=== PATIENT | female | born 1955 | race Caucasian/White ===

== ENCOUNTER → 2017-01-31 | Outpatient (CLI) | payer OTHER ==
--- NOTE | 2017-02-01 12:50 | MM ---
Reason for exam: screening (asymptomatic). History: Family history of breast cancer in sister at age 70. Benign excisional biopsy of the left breast, 2009. Physical Findings: A clinical breast exam by your physician is recommended on an annual basis and results should be correlated with mammographic findings. MG 3D Screening Mammo W/Cad Bilateral CC and MLO view(s) were taken. There are scattered fibroglandular densities. No significant changes when compared with prior studies. ASSESSMENT: Benign, BI-RAD 2 RECOMMENDATION: Routine screening mammogram of both breasts in 1 year.
== END | disposition home or self-care (01) ==
LOC: RADMAMWWP 09:33
PROVIDERS: ATTEND Internal Medicine
DX: Z12.31 Encounter for screening mammogram for malignant neoplasm of breast (principal)
CPT/HCPCS: 77063; G0202

== ENCOUNTER → 2018-03-20 | Outpatient (CLI) | payer BC ==
--- NOTE | 2018-03-21 13:40 | MM ---
Reason for exam: screening (asymptomatic). Last mammogram was performed 1 year and 2 months ago. History: Patient is postmenopausal. Family history of breast cancer in sister at age 70. Benign excisional biopsy of the left breast, 2009. Physical Findings: A clinical breast exam by your physician is recommended on an annual basis and results should be correlated with mammographic findings. MG 3D Screening Mammo W/Cad Bilateral CC and MLO view(s) were taken. Prior study comparison: January 31, 2017, bilateral MG 3d screening mammo w/cad. August 29, 2014, mammogram. The breast tissue is heterogeneously dense. This may lower the sensitivity of mammography. Finding: There are typically benign vascular calcifications in the left breast. There is no discrete abnormality. ASSESSMENT: Benign, BI-RAD 2 RECOMMENDATION: Routine screening mammogram of both breasts in 1 year.
== END | disposition home or self-care (01) ==
LOC: RADMAMWWP 11:15
PROVIDERS: ATTEND Internal Medicine
DX: Z12.31 Encounter for screening mammogram for malignant neoplasm of breast (principal)
CPT/HCPCS: 77063; 77067

== ENCOUNTER → 2019-01-25 | Outpatient (CLI) | payer BC, MEDICARE ==
--- NOTE | 2019-01-25 09:55 | XR ---
EXAMINATION TYPE: XR foot complete LT DATE OF EXAM: 01/25/2019 COMPARISON: NONE HISTORY: Pain TECHNIQUE: Three views are submitted. FINDINGS: The osseous structures are intact. There is no acute fracture or dislocation. Arthropathy of the f irst MTP joint with hypertrophic spurring. Large spurs are seen involving the Achilles insertion and plantar surface of the calcaneus. IMPRESSION: 1. Large calcaneal spurs.
== END | disposition home or self-care (01) ==
LOC: RADXRYALE 09:39
PROVIDERS: ATTEND Internal Medicine
DX: M77.32 Calcaneal spur, left foot (principal)

== ENCOUNTER → 2019-02-20 | Outpatient (CLI) | payer BC, MEDICARE ==
--- NOTE | 2019-02-20 08:58 | US ---
EXAMINATION TYPE: US liver DATE OF EXAM: 02/20/2019 COMPARISON: NONE CLINICAL HISTORY: R94.5 Abn liver functions. Patient complains of tiredness. History of multiple peop le in the family with liver cancer. EXAM MEASUREMENTS: Liver Length: 15.0 cm Gallbladder Wall: 0.3 cm CBD: 0.3 cm Right Kidney: 11.2 x 5.1 x 4.9 cm Pancreas: Partially Obscured by bowel gas Liver: Difficult to fully evaluate due to large amounts of bowel gas. There is increased echogenicit y of the hepatic parenchyma with diminished visualization of the portal triads most commonly relating to hepatic steatosis and limiting evaluation for underlying hepatic masses. Hypoechoic area left lob e = 1.6 x 1.8 x 1.0 cm with irregular boarders. Possible cyst vs mass, poorly evaluated given the und erlying hepatic steatosis. Gallbladder: Difficult to fully evaluate due to large amounts of bowel gas. Fold noted at fundus. No obvious gallstones seen, but poor visualization overall. Evidence for sonographic Pinon's sign: No CBD: wnl Right Kidney: Thinned renal cortex. No hydronephrosis. IMPRESSION: 1. Findings most compatible with hepatic steatosis. This limits evaluation for hepatic masses however there is a 1.8 cm mass in the left hepatic lobe. This could represent a cyst although is not clearly defined given the underlying hepatic steatosis and therefore recommendation is for three-phase enhan nuria CT abdomen for further clarification. 2. Limited exam of the pancreas and gallbladder. 3. Mild cortical renal thinning, sequela of medical renal disease on the right.
== END | disposition home or self-care (01) ==
LOC: RADUSWWP 07:25
PROVIDERS: ATTEND Internal Medicine
DX: N28.89 Other specified disorders of kidney and ureter (principal); R16.0 Hepatomegaly, not elsewhere classified
CPT/HCPCS: 76705

== ENCOUNTER → 2019-03-30 | Outpatient (CLI) | payer BC, MEDICARE ==
--- NOTE | 2019-04-02 09:55 | MM ---
Reason for exam: screening (asymptomatic). Last mammogram was performed 1 year ago. History: Patient is postmenopausal. Family history of breast cancer in sister at age 70. Benign excisional biopsy of the left breast, 2009. Physical Findings: A clinical breast exam by your physician is recommended on an annual basis and results should be correlated with mammographic findings. MG 3D Screening Mammo W/Cad Bilateral CC and MLO view(s) were taken. Prior study comparison: March 20, 2018, bilateral MG 3d screening mammo w/cad. January 31, 2017, bilateral MG 3d screening mammo w/cad. There are scattered fibroglandular densities. There is no discrete abnormality. No significant changes when compared with prior studies. ASSESSMENT: Negative, BI-RAD 1 RECOMMENDATION: Routine screening mammogram of both breasts in 1 year.
== END | disposition home or self-care (01) ==
LOC: RADMAMWWP 08:19
PROVIDERS: ATTEND Internal Medicine
DX: Z12.31 Encounter for screening mammogram for malignant neoplasm of breast (principal)
CPT/HCPCS: 77063; 77067

== ENCOUNTER → 2020-05-23 | Outpatient (CLI) | payer MEDICARE ==
--- NOTE | 2020-05-26 10:00 | MM ---
Reason for exam: screening (asymptomatic). Last mammogram was performed 1 year and 2 months ago. History: Patient is postmenopausal. Family history of breast cancer in sister at age 70. Benign excisional biopsy of the left breast, 2009. Physical Findings: A clinical breast exam by your physician is recommended on an annual basis and results should be correlated with mammographic findings. MG 3D Screening Mammo W/Cad Bilateral CC and MLO view(s) were taken. Prior study comparison: March 30, 2019, bilateral MG 3d screening mammo w/cad. March 20, 2018, bilateral MG 3d screening mammo w/cad. The breast tissue is heterogeneously dense. This may lower the sensitivity of mammography. There is no discrete abnormality. No significant changes when compared with prior studies. ASSESSMENT: Negative, BI-RAD 1 RECOMMENDATION: Routine screening mammogram of both breasts in 1 year.
== END | disposition home or self-care (01) ==
LOC: RADMAMWWP 14:59
PROVIDERS: ATTEND Internal Medicine
DX: Z12.31 Encounter for screening mammogram for malignant neoplasm of breast (principal)
CPT/HCPCS: 77063; 77067

== ENCOUNTER → 2021-06-11 | Outpatient (CLI) | payer MEDICARE ==
--- NOTE | 2021-06-15 10:43 | MM ---
Reason for exam: screening (asymptomatic). Last mammogram was performed 1 year and 1 month ago. History: Patient is postmenopausal. Family history of breast cancer in sister at age 70. Benign excisional biopsy of the left breast, 2009. Physical Findings: A clinical breast exam by your physician is recommended on an annual basis and results should be correlated with mammographic findings. MG 3D Screening Mammo W/Cad Bilateral CC and MLO view(s) were taken. Prior study comparison: May 23, 2020, bilateral MG 3d screening mammo w/cad. March 30, 2019, bilateral MG 3d screening mammo w/cad. March 20, 2018, bilateral MG 3d screening mammo w/cad. There are scattered fibroglandular densities. No significant changes when compared with prior studies. ASSESSMENT: Benign, BI-RAD 2 RECOMMENDATION: Routine screening mammogram of both breasts in 1 year.
== END | disposition home or self-care (01) ==
LOC: RADMAMWWP 12:03
PROVIDERS: ATTEND Internal Medicine
DX: Z12.31 Encounter for screening mammogram for malignant neoplasm of breast (principal); Z78.0 Asymptomatic menopausal state
CPT/HCPCS: 77063; 77067

== ENCOUNTER 2022-02-13 16:52 | Emergency (ER) | payer MEDICARE ==
[2022-02-13 17:02] VITALS: BP 160/100; PULSE 78; RESP 18; TEMP 99.1
[2022-02-13] MEDS ORDERED: FLUORESCEIN STRIPS 1 MG STRIP RIGHT EYE ONE (17:11)
--- NOTE | 2022-02-13 17:13 | ED ---
General Adult HPI - General Chief complaint: Allergic Reaction Stated complaint: Allergic reaction, facial swelling Time Seen by Provider: 02/13/22 17:05 Source: patient, RN notes reviewed Mode of arrival: ambulatory Limitations: no limitations - History of Present Illness Initial comments: Patient is a pleasant 67-year-old female presenting to the emergency department with concerns for possible ALLERGIC reaction. Patient is having discomfort of her mouth and throat and rash over face. Patient states this is only affecting the right side and not the left. Onset of symptoms was around 4 days ago. Symptoms have slowly progressively worsened since that time. Facial rash does not hurt however mouth does. Patient is tolerating oral intake however states it does hurt to swallow. No dyspnea. Patient states there may be minimal swelling of the lip. - Related Data Previous Rx's Medication Instructions Recorded Acyclovir 800 mg PO 5XD #35 tablet 02/13/22 Ibuprofen [Motrin] 600 mg PO Q6HR PRN #20 tab 02/13/22 Allergies Allergy/AdvReac Type Severity Reaction Status Date / Time diphenhydramine Allergy Rash/Hives Verified 02/13/22 17:02 [From Benadryl] Sulfa (Sulfonamide Allergy Unknown Verified 02/13/22 17:02 Antibiotics) Review of Systems ROS Statement: Those systems with pertinent positive or pertinent negative responses have been documented in the HPI. ROS Other: All systems not noted in ROS Statement are negative. Constitutional: Denies: fever Eyes: Denies: vision change ENT: Reports: as per HPI. Denies: ear pain, hearing loss Respiratory: Denies: cough Cardiovascular: Denies: chest pain Endocrine: Denies: fatigue Gastrointestinal: Denies: abdominal pain Genitourinary: Denies: dysuria Musculoskeletal: Denies: back pain Skin: Reports: as per HPI, rash Past Medical History Past Medical History: Hypertension History of Any Multi-Drug Resistant Organisms: None Reported Past Surgical History: Section Past Psychological History: No Psychological Hx Reported Smoking Status: Never smoker Past Alcohol Use History: None Reported Past Drug Use History: None Reported General Exam Limitations: no limitations General appearance: alert, in no apparent distress Head exam: Present: normocephalic Eye exam: Present: normal appearance, PERRL, EOMI, other (Flurosyn stain without uptake). Absent: conjunctival injection ENT exam: Present: other (Right side of the oropharynx has diffuse areas of blistering. There is left side. This is mostly the soft palate. No tongue lesions.) Cardiovascular Exam: Present: regular rate, normal rhythm GI/Abdominal exam: Present: soft. Absent: tenderness Extremities exam: Present: normal inspection Neurological exam: Present: alert Psychiatric exam: Present: normal affect, normal mood Skin exam: Present: rash (Right upper lip with a couple of blisters. There is macular larger lesions of varying stages right maxillary region.) Course Vital Signs 02/13/22 16:57 Temperature 99.1 F Pulse Rate 78 Respiratory 18 Rate Blood Pressure 160/100 O2 Sat by Pulse 97 Oximetry Disposition Clinical Impression: Shingles Disposition: HOME SELF-CARE Condition: Stable Instructions (If sedation given, give patient instructions): Edmund (ED) Additional Instructions: Prescriptions have been sent to pharmacy. Please follow-up with primary care doctor as well as ophthalmology beginning of the week. Return for not tolerating fluids, difficulty breathing, worsening symptoms, eye pain or eye color changes, or other concerns. Maalox swish and spit every 4 hours as needed for mouth discomfort. Prescriptions: Acyclovir 800 mg PO 5XD #35 tablet Ibuprofen [Motrin] 600 mg PO Q6HR PRN #20 tab PRN Reason: Pain Is patient prescribed a controlled substance at d/c from ED?: No Referrals: Quynh Serrato MD [Primary Care Provider] - 1-2 days Jennifer Dunlap MD [STAFF PHYSICIAN] - 1-2 days Time of Disposition: 17:31
[2022-02-13] MEDS ORDERED: traMADol 50 MG STARTER PACK 3 TAB BTL PO STA (17:34)
[2022-02-13] MEDS ORDERED: ACYCLOVIR 800 MG TAB PO STA (17:34)
== END 2022-02-13 18:15 | disposition home or self-care (01) ==
LOC: EC 16:52
DX: B02.9 Zoster without complications (principal); I10 Essential (primary) hypertension; Z88.2 Allergy status to sulfonamides; Z88.8 Allergy status to other drugs, medicaments and biological substances
CPT/HCPCS: 99283

== ENCOUNTER → 2022-06-14 | Outpatient (CLI) | payer MEDICARE ==
--- NOTE | 2022-06-15 07:59 | MM ---
Reason for Exam: Screening (asymptomatic). Last mammogram was performed 1 year(s) and 1 month(s) ago. Patient History: Menarche at age 10. First Full-Term at age 18. Hysterectomy at age 23. Postmenopausal. 2009, Benign Excisional Biopsy on the left side. Sister had breast cancer, age 70. Risk Values: Charla 5 year model risk: 3.9%. NCI Lifetime model risk: 11.6%. Prior Study Comparison: 03/30/2019 Bilateral Screening Mammogram, [facility]. 05/23/2020 Bilateral Screening Mammogram, [facility]. 06/11/2021 Bilateral Screening Mammogram, [facility]. Tissue Density: The breast tissue is heterogeneously dense. This may lower the sensitivity of mammography. Findings: Analyzed By CAD. There is no suspicious group of microcalcifications or new suspicious mass in either breast. No significant change from prior exams. Overall Assessment: Negative, BI-RAD 1 Management: Screening Mammogram of both breasts in 1 year. A clinical breast exam by your physician is recommended on an annual basis and results should be correlated with mammographic findings. Electronically signed and approved by: Conrado Nicolas D.O.
== END | disposition home or self-care (01) ==
LOC: RADMAMWWP 10:45
PROVIDERS: ATTEND Internal Medicine
DX: Z12.31 Encounter for screening mammogram for malignant neoplasm of breast (principal); Z78.0 Asymptomatic menopausal state; Z80.3 Family history of malignant neoplasm of breast
CPT/HCPCS: 77063; 77067

== ENCOUNTER → 2022-07-08 | Outpatient (CLI) | payer MEDICARE ==
--- NOTE | 2022-07-08 17:26 | BD ---
EXAMINATION TYPE: Axial Bone Density DATE OF EXAM: 07/08/2022 COMPARISON: NONE CLINICAL HISTORY: 67 years year old Female. ICD-10 CODE: M85.88 DISRD OF BONE DENSITY AND STRUCTURE Height: 5 FT 4 IN Weight: 181 FRAX RISK QUESTIONS: Alcohol (3 or more units per day): NO Family History (Parent hip fracture): NO Glucocorticoids (More than 3mos): NO (Ex: prednisone, prednisolone, methylprednisolone, dexamethasone, and hydrocortisone). History of Fracture in Adulthood: YES Secondary Osteoporosis: 1. Type 1 Diabetes: NO 2. Hyperthyroidism: NO 3. Menopause before 45: YES 4. Malnutrition: NO 5. Chronic liver disease: NO Rheumatoid Arthritis: NO Current Tobacco Use: NO RISK FACTORS HISTORY OF: Surgery to Spine/Hip(right/left)/Wrist (right/left): NO Family History of Osteoporosis: YES Active: YES Diet low in dairy products/other sources of calcium: NO Postmenopausal woman: YES Take estrogen and/or progesterone medications: NO Lost more than 2 inches in height since high school: NO Frequent falls: NO Poor Health: GOOD Hyperparathyroidism: NO Adrenal Insufficiency: NO MEDICATIONS: Additional Medications: VERAPAMIL.METOPROLOL, GENERIC FOR FOSAMAX, ROSUVASTATIN, ASPIRIN, GABAPENTIN, Additional History: FOSAMAX TAKEN FOR 20 PLUS YEARS EXAM MEASUREMENTS: Bone mineral densitometry was performed using the [employer] System. Bone mineral density as measured about the Lumbar spine is: ----- L1-L4(G/cm2): 1.277 T Score Values are as follows: ----- L1: 0.5 ----- L2: -0.1 ----- L3: 1.3 ----- L4: 1.2 ----- L1-L4: 0.8 BASELINE Bone mineral density about the R hip (g/cm2): 0.942 Bone mineral density about the L hip (g/cm2): 0.995 T Score values are as follows: -----R Neck: -0.7 -----L Neck: -0.3 -----R Total: 0.4 -----L Total: 0.7 BASELINE FRAX%s: The graph provided illustrates a 12.6 % chance for a major osteoporotic fx and a 0.9 % chance for the hips probability for fx in 10 years time. IMPRESSION: Normal (Values between +1 and -1 indicate normal bone mass). Consider repeating this study in 5 year s or sooner if there is some new clinical indication. NOTE: T-SCORE=SD OF THE YOUNG ADULT MEAN.
== END | disposition home or self-care (01) ==
LOC: RADBDWWP 10:15
PROVIDERS: ATTEND Internal Medicine
DX: M85.88 Other specified disorders of bone density and structure, other site (principal)
CPT/HCPCS: 77080

== ENCOUNTER → 2023-06-23 | Outpatient (CLI) | payer MEDICARE ==
--- NOTE | 2023-06-24 11:26 | MM ---
Reason for Exam: Screening (asymptomatic). Last screening mammogram was performed 12 month(s) ago. Patient History: Menarche at age 10. First Full-Term at age 18. Hysterectomy at age 23. Postmenopausal. 2009, Benign Excisional Biopsy on the left side. Sister had breast cancer, age 70. Risk Values: Charla 5 year model risk: 3.9%. NCI Lifetime model risk: 11.1%. Prior Study Comparison: 05/23/2020 Bilateral Screening Mammogram, [facility]. 06/11/2021 Bilateral Screening Mammogram, [facility]. 06/14/2022 Bilateral MG 3D screening mammo w/cad, [facility]. Tissue Density: The breast tissue is heterogeneously dense. This may lower the sensitivity of mammography. Findings: Analyzed By CAD. There is no suspicious group of microcalcifications or new suspicious mass in either breast. Overall Assessment: Benign, BI-RAD 2 Management: Screening Mammogram of both breasts in 1 year. . Patient should continue monthly self-breast exams. A clinical breast exam by your physician is recommended on an annual basis. This exam should not preclude additional follow-up of suspicious palpable abnormalities. Note on Charla scores and lifetime risk: 1. A Charla score greater than 3% is considered moderate risk. If this is the case, consider specialist referral to assess eligibility for a risk reducing agent. 2. If overall lifetime risk for the development of breast cancer is 20% or higher, the patient may qualify for future screening with alternating mammogram and breast MRI. Electronically signed and approved by: Lloyd Walker M.D. Radiologis
== END | disposition home or self-care (01) ==
LOC: RADMAMWWP 11:49
PROVIDERS: ATTEND Internal Medicine
DX: Z12.31 Encounter for screening mammogram for malignant neoplasm of breast (principal); Z78.0 Asymptomatic menopausal state; Z80.3 Family history of malignant neoplasm of breast
CPT/HCPCS: 77063; 77067

== ENCOUNTER → 2024-06-27 | Outpatient (CLI) | payer MEDICARE ==
--- NOTE | 2024-06-27 11:58 | MM ---
Reason for Exam: Screening (asymptomatic). Last screening mammogram was performed 12 month(s) ago. Patient History: Menarche at age 10. First Full-Term at age 18. Hysterectomy at age 23. Postmenopausal. 2010, Benign Excisional Biopsy on the left side. Sister had breast cancer, age 70. Risk Values: Charla 5 year model risk: 3.9%. NCI Lifetime model risk: 10.6%. Prior Study Comparison: 06/11/2021 Bilateral Screening Mammogram, [facility]. 06/14/2022 Bilateral MG 3D screening mammo w/cad, [facility]. 06/23/2023 Bilateral MG 3D screening mammo w/cad, [facility]. Tissue Density: The breasts are heterogeneously dense, which may obscure small masses. Findings: Analyzed By CAD. There is no suspicious group of microcalcifications or new suspicious mass in either breast. Overall Assessment: Benign, BI-RAD 2 Management: Screening Mammogram of both breasts in 1 year. . Patient should continue monthly self-breast exams. A clinical breast exam by your physician is recommended on an annual basis. This exam should not preclude additional follow-up of suspicious palpable abnormalities. Note on Charla scores and lifetime risk: 1. A Charla score greater than 3% is considered moderate risk. If this is the case, consider specialist referral to assess eligibility for a risk reducing agent. 2. If overall lifetime risk for the development of breast cancer is 20% or higher, the patient may qualify for future screening with alternating mammogram and breast MRI. [facility], , 06/27/2024 11:55 AM. Electronically signed and approved by: Gorge Rutledge M.D. Radiologis
== END | disposition home or self-care (01) ==
LOC: RADMAMWWP 11:11
PROVIDERS: ATTEND Internal Medicine
DX: Z12.31 Encounter for screening mammogram for malignant neoplasm of breast
CPT/HCPCS: 77063; 77067

== ENCOUNTER → 2024-08-02 | Outpatient (CLI) | payer MEDICARE ==
--- NOTE | 2024-08-02 20:59 | BD ---
EXAMINATION TYPE: Axial Bone Density DATE OF EXAM: 08/02/2024 CLINICAL HISTORY: 69 years old Female. ICD-10 CODE: N95.8 MENOPAUSAL AND PERIMENOPAUSAL DISORDERS , Additional History: Height: 63.7 Weight: 178 FRAX RISK QUESTIONS: History of Fracture in Adulthood: yes Secondary Osteoporosis: 3. Menopause before 45: yes RISK FACTORS HISTORY OF: MEDICATIONS: Osteoporosis Medications: Which medication: Alendronate How Long: over 20 years EXAM MEASUREMENTS: Bone mineral densitometry was performed using the [employer] System. Bone mineral density as measured about the Lumbar spine is: ----- L1-L4(G/cm2): 1.242 T Score Values are as follows: ----- L1: -0.3 ----- L2: 0.0 ----- L3: 0.7 ----- L4: 1.2 ----- L1-L4: 0.5 Z Score Values are as follows: ----- L1: 0.9 ----- L2: 1.2 ----- L3: 1.9 ----- L4: 2.4 ----- L1-L4: 1.7 Bone mineral density has: Decreased -2.7% since study of: 07-08-22 Bone mineral density about the R hip (g/cm2): 1.061 Bone mineral density about the L hip (g/cm2): 1.118 T Score values are as follows: -----R Neck: -0.6 -----L Neck: -0.6 -----R Total: 0.4 -----L Total: 0.9 Z Score values are as follows: -----R Neck: 0.8 -----L Neck: 0.8 -----R Total: 1.6 -----L Total: 2.0 Bone mineral density has: Increased 0.9% since study of: 07-08-22 FRAX%s: The graph provided illustrates a 12.7% chance for a major osteoporotic fx and a 1.1% chance f or the hips probability for fx in 10 years time. IMPRESSION: Normal (Values between +1 and -1 indicate normal bone mass). Consider repeating this study in 5 year s or sooner if there is some new clinical indication. NOTE: T-SCORE=SD OF THE YOUNG ADULT MEAN. [facility], , 08/02/2024 8:57 PM
== END | disposition home or self-care (01) ==
LOC: RADBDWWP 10:54
PROVIDERS: ATTEND Internal Medicine
DX: N95.8 Other specified menopausal and perimenopausal disorders (principal)
CPT/HCPCS: 77080